=== PATIENT | male | born 1995 | race Caucasian/White ===

== ENCOUNTER 2017-03-30 09:48 | Emergency (ER) | payer OTHER ==
--- NOTE | 2017-03-30 09:53 | UC ---
Ear Complaint HPI - HPI Summary HPI Summary: 22 year old male presents with complains of left ear pressure. - History of Current Complaint Stated Complaint: EAR PRESSURE Time Seen by Provider: 03/30/17 09:52 - Allergies/Home Medications Allergies/Adverse Reactions: Allergies Allergy/AdvReac Type Severity Reaction Status Date / Time No Known Allergies Allergy Verified 03/30/17 09:56 PMH/Surg Hx/FS Hx/Imm Hx - Surgical History Surgical History: Yes - Social History Substance Use Type: None - Immunization History Vaccination Up to Date: Yes Review of Systems Constitutional: Negative Skin: Negative Eyes: Negative ENT: Ear Ache Respiratory: Negative Cardiovascular: Negative Gastrointestinal: Negative Genitourinary: Negative Motor: Negative Neurovascular: Negative Musculoskeletal: Negative Neurological: Negative Psychological: Negative All Other Systems Reviewed And Are Negative: Yes Physical Exam Triage Information Reviewed: Yes Eye Exam: Normal ENT: Positive: Other: - left ear pressure bilateral cerumen impaction Dental Exam: Normal Neck exam: Normal Neck: Positive: 1 Respiratory Exam: Normal Cardiovascular Exam: Normal Abdominal Exam: Normal Musculoskeletal Exam: Normal Neurological Exam: Normal Psychological Exam: Normal Skin Exam: Normal Ear Complaint Course/Dx - Differential Dx/Diagnosis Provider Diagnoses: bilateral cerumen impaction Discharge - Discharge Plan Condition: Stable Disposition: HOME Prescriptions: Amoxicillin/Clavulanate TAB* [Augmentin TAB 875*] 875 mg PO BID #20 tab Methylprednisolone [Medrol Dosepak 4 MG*] 4 mg PO .SEE BENI INSTRUCTION #21 tab Neomyc/Polym/HC 1% OTIC SUSP* [Cortisporin Otic Susp 1%*] 4 drop BOTH EARS QID # 1 btl Patient Education Materials: Cerumen Impaction (ED), Earache (ED) Referrals: Lon José MD [Primary Care Provider] - If Needed
[2017-03-30 09:57] VITALS: BP 120/72
== END 2017-03-30 10:24 | disposition home or self-care (01) ==
LOC: UCCORT 09:48
DX: H61.23 Impacted cerumen, bilateral (principal)
CPT/HCPCS: 99213; G0463